=== PATIENT | female | born 1995 | race Two or more races ===

== ENCOUNTER → 2025-04-25 | Emergency (ER) | payer OTHER ==
[~2025-04-25] VITALS: Ht 165.1 cm; Wt 89.4 kg
[2025-04-25 14:11] LABS: BASO % 0.5 % (0.1-1.2); EOS # 0.11 (0.04-0.54); HEMATOCRIT 34.9 % (34.1-44.9); HEMOGLOBIN 12.6 g/dL (11.2-15.7); LYMPH # 1.94 (1.18-3.74); LYMPH % 18.4 % (19.3-53.1); MEAN CORPUSCULAR HEMOGLOBIN 31.2 pg (25.6-32.2); MONO # 0.74 (0.24-0.82); NEUT # 7.63 (1.56-6.13); NEUT % 72.6 % (34.0-71.1); PLATELET COUNT 401 K/uL (163-369); RED BLOOD COUNT 4.04 M/uL (3.93-5.22); RED CELL DISTRIBUTION WIDTH 12.4 % (11.6-14.4)
[2025-04-25 14:25] LABS: PH,URINE 5.5 (5.0-8.0); URINE APPEARANCE Cloudy; URINE BILIRRUBIN Negative (NEGATIVE); URINE BLOOD Moderate; URINE COLOR Yellow; URINE GLUCOSE Negative (NEGATIVE); URINE KETONE Negative (NEGATIVE); URINE LEUKOCYTE Large; URINE NITRATE Negative; URINE PROTEIN Negative (NEGATIVE); URINE UROBILINOGEN 0.2 E.U./dl
[2025-04-25 14:28] LABS: URINE EPITHELIAL CELLS 41.9 uL (0.0-38.8); URINE RBC 6.9 uL (0.0-20.8); URINE WBC 256.1 uL (0.0-23.2)
[2025-04-25 14:33] LABS: CREATININE SERUM 0.43 mg/dL (0.55-1.02); GFR 174.84; POTASSIUM 3.76 mEq/L (3.5-5.1)
[2025-04-25 15:01] LABS: TYPE CELLS SQUAMOUS; URINE CAST 0.44 uL (0.0-1.40); URINE MUCUS SCANT; URINE YEAST FEW /hpf
== END | disposition home or self-care (01) ==
LOC: ER 12:44
PROVIDERS: Emergency Medicine
DX: Z34.90 Encounter for supervision of normal pregnancy, unspecified, unspecified trimester (principal); Z33.1 Pregnant state, incidental; Z3A.16 16 weeks gestation of pregnancy; R10.2 Pelvic and perineal pain

== ENCOUNTER 2025-07-09 17:02 | Outpatient (CLI) | payer OTHER ==
[~2025-07-09] VITALS: Ht 165.1 cm; Wt 94.3 kg
[2025-07-09 15:24] VITALS: BP 135/82
[2025-07-09 15:42] VITALS: BP 131/85
[2025-07-09] MEDS ORDERED: RINGERS SOLUTION,LACTATED 1,000 ML IV SCH (17:45)
[2025-07-09] MEDS ORDERED: NASAL MIST126 ML (18:01)
[2025-07-09] MEDS ORDERED: CALCIUM500 M2 PO (18:01)
[2025-07-09] MEDS ORDERED: PRENATA CHEWAB1 EACH PO (18:01)
[2025-07-09 18:14] LABS: BASO % 0.4 % (0.1-1.2); EOS # 0.08 (0.04-0.54); EOS % 0.7 % (0.7-7.0); LYMPH # 1.70 (1.18-3.74); LYMPH % 15.0 % (19.3-53.1); MEAN PLATELET VOLUME 9.30 fl (9.4-12.4); MONO # 0.90 (0.24-0.82); MONO % 7.9 % (4.7-12.5); NEUT # 8.55 (1.56-6.13); NEUT % 75.2 % (34.0-71.1); RED CELL DISTRIBUTION WIDTH 12.5 % (11.6-14.4); URINE APPEARANCE Clear; URINE BILIRRUBIN Negative (NEGATIVE); URINE BLOOD Small; URINE COLOR Yellow; URINE GLUCOSE Negative (NEGATIVE); URINE KETONE Negative (NEGATIVE); URINE LEUKOCYTE Negative; URINE NITRATE Negative; URINE PROTEIN Negative (NEGATIVE); URINE UROBILINOGEN 0.2 E.U./dl
[2025-07-09 18:15] LABS: URINE BACTERIA 1443.6 uL (0.0-1933); URINE EPITHELIAL CELLS 15.8 uL (0.0-38.8); URINE RBC 12.4 uL (0.0-20.8); URINE WBC 19.8 uL (0.0-23.2)
[2025-07-09 18:17] LABS: URINE CAST 0.00 uL (0.0-1.40)
[2025-07-09 18:39] LABS: INR 0.99
[2025-07-09 18:44] LABS: ALT/SGPT 57.0 U/L (12-78); AST/SGOT 27.0 U/L (15-37); BILIRUBIN TOTAL 0.36 mg/dL (0.3-1.2); BUN CREA RATIO 17.0 (7.0-25.0); CREATININE SERUM 0.48 mg/dL (0.55-1.02); GFR 154.0; GLOBULINA 3.9 G/DL (2.4-3.5); GLUCOSE FASTING 61.0 mg/dL (65-100); OSMOLALITY SERUM 277.0 MOSM/KG (275-295)
[2025-07-09 19:55] VITALS: BP 131/83
[2025-07-09 23:21] VITALS: BP 119/72
[2025-07-10 03:17] VITALS: BP 132/83
[2025-07-10 07:20] VITALS: BP 138/89
[2025-07-10 11:12] VITALS: BP 147/78; O2SAT 99
[2025-07-10 11:54] VITALS: BP 124/81
[2025-07-10 15:26] VITALS: BP 126/82
== END 2025-07-10 15:26 | disposition home or self-care (01) ==
LOC: OBS/DEL 17:02
PROVIDERS: Obstetrics & Gynecology; ATTEND Specialist
DX: O26.892 Other specified pregnancy related conditions, second trimester (principal); O36.8120 Decreased fetal movements, second trimester, not applicable or unspecified; O60.00 Preterm labor without delivery, unspecified trimester; Z3A.28 28 weeks gestation of pregnancy

== ENCOUNTER 2025-07-17 12:39 | Outpatient (CLI) | payer OTHER ==
[~2025-07-17 12:39] MED LIST: CALCIUM500 M2 PO; NASAL MIST126 ML; PRENATA CHEWAB1 EACH PO
== END 2025-07-17 14:29 | disposition home or self-care (01) ==
LOC: NST 12:39
PROVIDERS: ATTEND Specialist
DX: Z34.83 Encounter for supervision of other normal pregnancy, third trimester (principal)

== ENCOUNTER 2025-09-10 16:45 | Outpatient (CLI) | payer OTHER | END 2025-09-10 17:25 | disposition home or self-care (01) | LOC: NST 16:45 | PROVIDERS: ATTEND Specialist | DX: Z34.83 Encounter for supervision of other normal pregnancy, third trimester (principal) ==

== ENCOUNTER 2025-09-23 09:30 | Inpatient (IN) | payer OTHER ==
[~2025-09-23] VITALS: Ht 165.1 cm; Wt 3.2 kg
[2025-09-27 07:14] VITALS: BP 160/98
[2025-09-27] MEDS ORDERED: MAGNESIUM SULFATE IN WATER 100 ML IV SCH (07:45)
[2025-09-27 08:30] LABS: BASO % 0.4 % (0.1-1.2); EOS # 0.09 (0.04-0.54); EOS % 0.8 % (0.7-7.0); LYMPH # 1.57 (1.18-3.74); LYMPH % 14.4 % (19.3-53.1); MEAN PLATELET VOLUME 9.50 fl (9.4-12.4); MONO # 0.90 (0.24-0.82); MONO % 8.2 % (4.7-12.5); NEUT # 8.25 (1.56-6.13); NEUT % 75.7 % (34.0-71.1); RED CELL DISTRIBUTION WIDTH 12.8 % (11.6-14.4)
[2025-09-27 08:32] LABS: URINE APPEARANCE Clear; URINE BILIRRUBIN Negative (NEGATIVE); URINE BLOOD Moderate; URINE COLOR Yellow; URINE GLUCOSE Negative (NEGATIVE); URINE KETONE Trace (NEGATIVE); URINE LEUKOCYTE Negative; URINE NITRATE Negative; URINE UROBILINOGEN 0.2 E.U./dl
[2025-09-27 08:37] LABS: URINE BACTERIA 524.3 uL (0.0-1933); URINE EPITHELIAL CELLS 56.5 uL (0.0-38.8); URINE RBC 63.9 uL (0.0-20.8); URINE WBC 10.9 uL (0.0-23.2)
[2025-09-27 08:53] LABS: URINE CAST 0.14 uL (0.0-1.40); URINE PROTEIN 100 (NEGATIVE)
[2025-09-27 08:56] LABS: INR 0.96
[2025-09-27 09:00] LABS: ALT/SGPT 81.0 U/L (12-78); AST/SGOT 35.0 U/L (15-37); BILIRUBIN TOTAL 0.64 mg/dL (0.3-1.2); BUN CREA RATIO 21.0 (7.0-25.0); CREATININE SERUM 0.48 mg/dL (0.55-1.02); GFR 154.0; GLOBULINA 3.8 G/DL (2.4-3.5); GLUCOSE FASTING 85.0 mg/dL (65-100); OSMOLALITY SERUM 278.0 MOSM/KG (275-295)
[2025-09-27 09:06] VITALS: BP 142/92
[2025-09-27] MEDS ORDERED: MAGNESIUM SULFATE IN WATER 100 ML IV ONE (09:30)
[2025-09-27] MEDS ORDERED: RINGERS SOLUTION,LACTATED 1,000 ML IV SCH (09:30)
[2025-09-27 10:05] VITALS: BP 141/92
[2025-09-27] MEDS ORDERED: ERYTHROMYCIN BASE OPHT 1GM EACH TUBE OP ONE (11:16)
[2025-09-27] MEDS ORDERED: CEFAZOLIN SODIUM 1,000 MG VIAL ONE (11:56)
[2025-09-27] MEDS ORDERED: MAGNESIUM SULFATE IN WATER 500 ML IV SCH (14:30)
[2025-09-27] MEDS ORDERED: MORPHINE SULFATE 4 MG/ML VIAL IV PRN (14:30)
[2025-09-27] MEDS ORDERED: RINGERS SOLUTION,LACTATED 100 ML IV SCH (14:30)
[2025-09-27] MEDS ORDERED: MAGNESIUM SULFATE IN WATER 0.04 GM/ML IV.SOLN IV ONE (15:18)
[2025-09-27 16:40] VITALS: BP 138/88
[2025-09-27] MEDS ORDERED: CEFAZOLIN SODIUM 1,000 MG VIAL IV SCH (20:00)
[2025-09-27 20:16] VITALS: BP 159/94
[2025-09-27 23:14] VITALS: BP 150/90
[2025-09-28 01:44] LABS: BASO % 0.3 % (0.1-1.2); EOS # 0.01 (0.04-0.54); EOS % 0.1 % (0.7-7.0); LYMPH # 1.20 (1.18-3.74); LYMPH % 10.1 % (19.3-53.1); MEAN PLATELET VOLUME 9.30 fl (9.4-12.4); MONO # 0.87 (0.24-0.82); MONO % 7.3 % (4.7-12.5); NEUT # 9.77 (1.56-6.13); NEUT % 81.9 % (34.0-71.1); RED CELL DISTRIBUTION WIDTH 12.8 % (11.6-14.4)
[2025-09-28 03:40] VITALS: BP 150/94
[2025-09-28] MEDS ORDERED: LABETALOL HCL 200 MG TABLET PO SCH (05:53)
[2025-09-28 07:35] VITALS: BP 132/86; O2SAT 98
[2025-09-28] MEDS ORDERED: OxyCODONE HCL 5 MG TABLET (ROXICODONE) PO PRN (07:45)
[2025-09-28] MEDS ORDERED: ACETAMINOPHEN 500 MG GEL..CAP PO PRN (07:45)
[2025-09-28 10:56] VITALS: BP 122/84; O2SAT 99
[2025-09-28 13:18] VITALS: BP 150/98
[2025-09-28 18:55] VITALS: BP 145/75
[2025-09-29] VITALS: BP 135/86
[2025-09-29 09:52] VITALS: BP 140/90
[2025-09-29 16:08] VITALS: BP 148/89
[2025-09-30 01:14] VITALS: BP 134/84; BP 146/86
[2025-09-30] MEDS ORDERED: LABETALOL HCL200 MG PO (08:03)
[2025-09-30 09:39] VITALS: BP 130/81
== END 2025-09-30 14:47 | disposition home or self-care (01) | DRG 788 ==
LOC: LDR 09-27 07:26 → OB/GYN 09-27 13:39 → LDR 09-27 15:30 → OB/GYN 09-28 10:55
PROVIDERS: ADMIT Specialist; ATTEND Specialist
PROC: 4A1HXCZ Monitoring of Products of Conception, Cardiac Rate, External Approach (ICD-10-PCS; 2025-09-27)
PROC: 10D00Z1 Extraction of Products of Conception, Low, Open Approach (ICD-10-PCS; principal; 2025-09-27 09:15)
DX: O32.1XX0 Maternal care for breech presentation, not applicable or unspecified (principal); O14.14 Severe pre-eclampsia complicating childbirth; O99.824 Streptococcus B carrier state complicating childbirth; Z3A.38 38 weeks gestation of pregnancy; Z37.0 Single live birth

== ENCOUNTER 2025-10-10 22:00 | Emergency (ER) | payer OTHER ==
[~2025-10-10] VITALS: Ht 165.1 cm; Wt 88.0 kg
[~2025-10-10 22:00] MED LIST changes: +LABETALOL HCL200 MG PO
[2025-10-10 22:13] VITALS: BP 160/110; O2SAT 100
[2025-10-10] MEDS ORDERED: LABETALOL HCL 200 MG TABLET PO STA (22:42)
[2025-10-10] MEDS ORDERED: ACETAMINOPHEN 500 MG GEL..CAP PO STA (22:43)
[2025-10-10] MEDS ORDERED: hydrALAZINE HCL 20 MG VIAL IV ONE (22:45)
[2025-10-10] MEDS ORDERED: ACETAMINOPHEN 500 MG GEL..CAP PO ONE (23:32)
[2025-10-11 00:29] LABS: BASO % 1.2 % (0.1-1.2); EOS # 0.22 (0.04-0.54); EOS % 3.6 % (0.7-7.0); LYMPH # 2.01 (1.18-3.74); LYMPH % 33.1 % (19.3-53.1); MEAN PLATELET VOLUME 8.90 fl (9.4-12.4); MONO # 0.51 (0.24-0.82); MONO % 8.4 % (4.7-12.5); NEUT # 3.24 (1.56-6.13); NEUT % 53.4 % (34.0-71.1); RED CELL DISTRIBUTION WIDTH 12.2 % (11.6-14.4)
[2025-10-11 00:32] LABS: ERYTHROCYTE SEDIMENTATION RATE 27 mm/hr (0-20)
[2025-10-11 00:45] LABS: INR 1.05
[2025-10-11 00:53] LABS: ALT/SGPT 33 U/L (12-78); AST/SGOT 17 U/L (15-37); BILIRUBIN TOTAL 0.62 mg/dL (0.3-1.2); BUN CREA RATIO 20 (7.0-25.0); CREATININE SERUM 0.66 mg/dL (0.55-1.02); GFR 105.88; GLOBULINA 4.2 G/DL (2.4-3.5); GLUCOSE FASTING 98 mg/dL (65-100); OSMOLALITY SERUM 283 MOSM/KG (275-295)
[2025-10-11 01:01] LABS: URINE APPEARANCE Clear; URINE BILIRRUBIN Negative (NEGATIVE); URINE BLOOD Large; URINE COLOR Yellow; URINE GLUCOSE Negative (NEGATIVE); URINE KETONE Negative (NEGATIVE); URINE LEUKOCYTE Small; URINE NITRATE Negative; URINE UROBILINOGEN 1.0 E.U./dl
[2025-10-11 01:05] LABS: URINE BACTERIA 115.5 uL (0.0-1933); URINE EPITHELIAL CELLS 20.0 uL (0.0-38.8); URINE RBC 373.5 uL (0.0-20.8); URINE WBC 193.7 uL (0.0-23.2)
[2025-10-11 01:47] LABS: TYPE CELLS SQUAMOUS; URINE CAST 0.14 uL (0.0-1.40); URINE PROTEIN 100 (NEGATIVE)
[2025-10-11] MEDS ORDERED: LABETALOL HCL200 MG PO (02:58)
== END 2025-10-11 03:10 ==
LOC: ER 22:01
PROVIDERS: Physician Assistant Medical
DX: I16.0 Hypertensive urgency (principal); I10 Essential (primary) hypertension; Z88.6 Allergy status to analgesic agent; R51.9 Headache, unspecified; R06.09 Other forms of dyspnea